=== PATIENT | female | born 1995 | race Caucasian/White ===

== ENCOUNTER 2018-09-01 23:27 | Emergency (ER) | payer OTHER ==
[~2018-09-01] VITALS: Ht 157.5 cm; Wt 68.2 kg
[~2018-09-01 23:27] MED LIST: LORTAB 5/500 501 TAB PO
[2018-09-01 23:47] VITALS: BP 117/91; TEMP 98.5
[2018-09-02 02:49] VITALS: PULSE 101
== END 2018-09-02 02:52 | disposition home or self-care (01) ==
LOC: COL.ER 23:27
DX: M25.572 Pain in left ankle and joints of left foot (principal)
CPT/HCPCS: J1885